=== PATIENT | female | born 1995 | race Caucasian/White ===

== ENCOUNTER 2019-07-20 03:17 | Emergency (ER) | payer SELFPAY ==
[~2019-07-20] VITALS: Ht 170.2 cm; Wt 96.6 kg
[2019-07-20 03:24] VITALS: Ht 170.2 cm; Wt 96.6 kg
[2019-07-20 03:38] VITALS: BP 135/64
== END 2019-07-20 03:38 | disposition home or self-care (01) ==
LOC: ED 03:17
DX: H10.31 Unspecified acute conjunctivitis, right eye (principal)